=== PATIENT | female | born 1960 | race Caucasian/White ===

== ENCOUNTER 2017-01-31 10:07 | Emergency (ER) | payer OTHER | END 2017-01-31 12:05 | disposition left against medical advice (07) | LOC: UCEAST 10:07 | DX: J02.9 Acute pharyngitis, unspecified (principal); Z53.21 Procedure and treatment not carried out due to patient leaving prior to being seen by health care provider ==

== ENCOUNTER 2017-02-26 08:59 | Day surgery (SDC) | payer OTHER ==
--- NOTE | 2017-02-22 22:40 | HP ---
PREOPERATIVE HISTORY AND PHYSICAL: DATE OF SURGERY: 02/26/17 [facility] DATE OF OFFICE VISIT: 02/22/17 ATTENDING SURGEON: Dr. Roseanne Greene. (DICTATED BY JOANNA TELLO) PROCEDURE: Right shoulder arthroscopic decompression and debridement of subpectoral biceps tenodesis. CHIEF COMPLAINT: Right shoulder pain. HISTORY OF PRESENT ILLNESS: Jacquelyn is a 56-year-old female who presents to the clinic for ongoing right shoulder pain due to impingement syndrome and biceps tendinitis. She has failed conservative measures to include physical therapy, corticosteroid injections, and NSAIDs and has therefore agreed to undergo a right shoulder arthroscopic decompression and debridement and subpectoral biceps tenodesis with Dr. Greene on 02/26/17. PAST MEDICAL HISTORY: 1. Asthma. 2. Depression. 3. Common variable immune deficiency. 4. Complex regional pain syndrome. 5. GERD. 6. History of hypertension in the past, now controlled with diet and weight loss. PAST SURGICAL HISTORY: 1. Right shoulder arthroscopic surgery. 2. Laparoscopy. 3. Cholecystectomy. 4. Tonsillectomy. 5. Adenoidectomy. 6. Cataract surgery. 7. Denies prior complications with anesthesia. MEDICATIONS: 1. Topiramate 100 mg take 1 by mouth in the morning and 1 by mouth at bedtime. 2. Baldwin 5/325 one by mouth 3 times a day as needed. 3. Flexeril 5 mg 1 by mouth at night as needed. 4. Singulair 10 mg 1 by mouth daily. 5. Xyzal 5 mg 1 by mouth daily. 6. Xopenex 0.63 mg/3 mL every 4 to 6 hours as needed. 7. Xanax 0.25 mg 1 by mouth up to 3 times a day as needed for anxiety. 8. Ambien 10 mg 1 by mouth at night. 9. Bupropion HCL 150 mg 1 by mouth daily. 10. Tylenol Extra Strength 500 mg 2 by mouth as needed. 11. Lidocaine 5% topical as needed. 12. Voltaren 1% topical as needed. 13. Gammagard 10 mg/100 mL 1 time a week subcu. 14. Lexapro 10 mg 1 by mouth every day. 15. Nexium 40 mg 1 by mouth every day. 16. Flovent HFA 110 mcg/HCT 2 puffs twice daily. ALLERGIES: PENICILLIN, BACTRIM, NEURONTIN, OXCARBAZEPINE, AMITRIPTYLINE, NORTRIPTYLINE, CYMBALTA, NEURONTIN . FAMILY HISTORY: Positive for heart disease and cancer. Her sister has a history of pulmonary embolism. SOCIAL HISTORY: She lives with her spouse. She is a former smoker and quit several years ago. She reports daily alcohol consumption. She denies illegal drug use. REVIEW OF SYSTEMS: General: Negative for fevers, chills, or night sweats. No known anesthesia problems. HEENT: Negative for headache, lightheadedness, or syncopal episodes. Integumentary: Negative for abrasions, lesions, or open wounds. Cardiothoracic: Negative for chest pain, palpitations, or edema. Positive for history of hypertension in the past. Pulmonary: Negative for shortness of breath with exertion, chronic cough, or COPD. GI: Negative for nausea, vomiting, diarrhea, constipation and positive for GERD. : Negative for nocturia, urinary frequency, history of UTIs, or kidney problems. Musculoskeletal: Positive for current complaint. Neuro: Negative for numbness , tingling, history of seizure, stroke, or epilepsy. Endocrine: Negative for diabetes or thyroid disease. Heme: Negative for easy bruising, anemia, excessive bleeding. The patient denies history of DVT or PE. Infectious Disease: Negative for history of MRSA. PHYSICAL EXAMINATION GENERAL: A well-developed, well-nourished, 56-year-old female, in no acute distress. Alert and oriented x3. Appropriate mood and affect. VITAL SIGNS: Height 63.5, weight 136, blood pressure 145/84, temperature 98.1, BMI 23.7. HEENT: Normocephalic, atraumatic. PERRLA. NECK: Supple. Throat clear. PULMONARY: Lungs are clear to auscultation bilaterally. No wheezing, rhonchi, or rales. CARDIAC: Regular rate and rhythm. S1, S2. No murmurs, gallops, or rubs. No edema. ABDOMEN: Positive bowel sounds. Soft and nontender. NEURO: Alert and oriented x3. Cranial nerves grossly intact. Sensation is intact to light touch. MUSCULOSKELETAL: Right upper extremity, skin is intact. No warmth or erythema. Tenderness to palpation over the anterior joint line. Nontender over the AC joint, forward flexion to 120, abduction 80, external rotation 20, internal rotation to the posterior iliac spine, +4 to 5 strength to global rotator cuff testing. Positive Neer, Speeds, Barney Dav, and Mccone. Posterior radial and ulnar pulse. Sensation is intact to light touch distally. DIAGNOSTIC STUDIES: MRI of the right shoulder revealed a high-grade partial thickness tear of the supraspinatus tendon. No evidence of full thickness tear. There is also subscapularis tendinosis including the bicipital groove indicative of biceps tendinitis. IMPRESSION: Right shoulder impingement syndrome and biceps tendinitis. PLAN: The patient is scheduled to undergo a right shoulder arthroscopic decompression, debridement, and subpectoral biceps tenodesis with Dr. Greene on 02/26/17. Per the patient, she is being cleared by her primary care physician. She will return to office in 10 to 14 days postop for followup and suture removal. Vicodin will be used for postop pain and management because Percocet causes nausea. JOANNA TELLO [id number]/[facility] #: [id number] MTDD
[~2017-02-26 08:59] MED LIST: Buffered Lidocaine 0.9% SYRIN* 5 ML/SYR SYRINGE INTRADERM ONE; Dexamethasone TAB* 4 MG PO ONE; Famotidine IV* 10 MG/ML 2 ML (20 mg) IV ONE; HYDROcodone/ACETAMIN 5-325 MG* 1 TAB PO PRN; Morphine INJ* 2 MG/ML 1 ML SYRINGE IV PRN; PROCHLORPERAZINE INJ 5 MG/ML 2 ML VIAL IV PRN; fentaNYL* 50 MCG/ML 2 ML VIAL (100 MCG VIAL) IV PRN
[2017-02-26] MEDS ORDERED: Famotidine IV* 10 MG/ML 2 ML (20 mg) ONE (09:22)
[2017-02-26] MEDS ORDERED: Dexamethasone TAB* 4 MG ONE (09:22)
[2017-02-26] MEDS ORDERED: Clindamycin 900 MG IVPREMIX(* 900 MG/50 ML SDV IV ONE (09:23)
[2017-02-26] MEDS ORDERED: Buffered Lidocaine 0.9% SYRIN* 5 ML/SYR SYRINGE ONE (09:23)
[2017-02-26] MEDS ORDERED: KETAMINE HCL* 50 MG/ML 10 ML VIAL ONE (09:56)
[2017-02-26] MEDS ORDERED: fentaNYL* 50 MCG/ML 2 ML VIAL (100 MCG VIAL) ONE (09:56)
[2017-02-26] MEDS ORDERED: Midazolam* 1 MG/ML 5 ML VIAL (5 MG) ONE (09:56)
[2017-02-26] MEDS ORDERED: Bupivacaine 0.25% EPI 200,000* 30 ML SDV ONE (11:13)
[2017-02-26] MEDS ORDERED: Bupivacaine 0.25% SDV* 30 ML ONE (11:13)
[2017-02-26] MEDS ORDERED: Ketorolac INJ* 30 MG/ML 1 ML VIAL ONE (12:22)
[2017-02-26] MEDS ORDERED: Ondansetron INJ* 2 MG/ML VIAL ONE (12:22)
[2017-02-26] MEDS ORDERED: Propofol* 10 MG/ML 20 ML BTL IV PUSH ONE (12:22)
[2017-02-26] MEDS ORDERED: PROCHLORPERAZINE INJ 5 MG/ML 2 ML VIAL ONE (12:22)
[2017-02-26] MEDS ORDERED: Lidocaine 2% PF * 5 ML VIAL ONE (12:22)
[2017-02-26] MEDS ORDERED: Dexamethasone IV* 4 MG/ML 1 ML (4 MG) ONE (12:22)
[2017-02-26] MEDS ORDERED: methylPREDNISolone ACETATE 80* 80 MG/ML 1 ML VIAL ONE (12:33)
[2017-02-26 14:14] VITALS: BP 126/76
--- NOTE | 2017-02-27 05:10 | OP ---
DATE OF OPERATION: 02/26/2017 - [facility] DATE OF : 1960 SURGEON: Roseanne Greene MD WEB SEARCH EVALUATOR: JOANNA Zheng. An biology laboratory assistant was needed for the entirety of this case to help with positioning, retraction, and was utilized throughout all portions of the case. ANESTHESIOLOGIST: Dr. Figueroa. ANESTHESIA: General with interscalene block. PRE-OP DIAGNOSES: Right shoulder impingement with bicipital tendinitis, partial tear of the rotator cuff. POST-OP DIAGNOSES: Right shoulder impingement with bicipital tendinitis, partial tear of the rotator cuff. OPERATIVE PROCEDURES: 1. Right shoulder arthroscopy with glenohumeral debridement. 2. Subacromial decompression with acromioplasty. 3. Subpectoral biceps tenodesis. 4. Subacromial injection of 80 mg of depomedrol COMPLICATIONS: None. ESTIMATED BLOOD LOSS: Minimal. IMPLANTS: One 2.8 mm Q-FIX [place]. INDICATIONS: Jacquelyn Tapia is a 56-year-old female who presents with persistent right shoulder pain. She had an injection, which helped her previously. She did physical therapy. The pain continued to persist and she had an MRI that confirmed a partial-thickness rotator cuff tear with bicipital tendinitis, but no full- thickness tears. Risks and benefits of surgical versus nonoperative treatment were discussed at length and she elected to proceed with surgery. DESCRIPTION OF PROCEDURE: The patient was greeted in the preoperative area by the attending surgeon. Correct extremity was marked and consent was confirmed. The patient then underwent interscalene nerve block by the anesthesiologist, after which the patient was then brought back to the operating suite, where she was placed in a left lateral decubitus position with an axillary roll. She underwent general anesthesia with LMA intubation, after which she was secured by the pegboard. The right arm was draped unsterilely with 10 pounds of traction. All bony prominences were padded. The right shoulder was then prepped and draped in the usual sterile fashion beginning with chlorhexidine soap, scrub, and alcohol wipe, and a final prep with ChloraPrep. After appropriate surgical pause indicating side, site, procedure, and administration of antibiotics, a standard postero-lateral portal was made sharply with an 11 blade. The scope was introduced through the joint. The joint was examined. There was abundant hyperemic tissue, especially anteriorly and along the interval. The superior, inferior, and posterior labrum had unstable fraying. The inferior recess was intact. The glenoid had grade 0 to 1 changes. The humeral head had grade 0 changes. The biceps was subluxed anteriorly. The anterior portal was made in an outside-in fashion and the biceps was then tenotomized for later tenodesis. The soft tissues were carefully dissected to expose the under-surface of the subscapularis, which was intact. The undersurface of the supraspinatus tendon had mild partial- thickness tearing. This was then marked and probed with an 18- gauge needle and a PDS suture to then probe on the superior portion to make sure there was no evidence of tearing. All fluid and debris were removed from the joint and attention was directed to the subacromial space. The scope was placed in the subacromial space. The lateral portal was made in an outside-in fashion. The shaver was used to remove the abundant bursa that was present. The undersurface of the acromion was identified and then skeletonized using the electrocautery device. The CA ligament was peeled back. A small acromioplasty was done using a 4.0 oval moe. All loose debris and tissue were removed. Once the debridement was complete, an 18-gauge needle was placed under arthroscopic visualization for later subacromial space injection of 80 mg of Depo- Medrol. Attention was directed to the biceps tendon. The bed was airplaned slightly to the right side. The anterior aspect of the shoulder was prepped again with ChloraPrep. A 15 blade was used to make an incision in line with the biceps tendon incorporating the inferior two-thirds of the pec tendon. The soft tissues were carefully dissected using the Metzenbaum scissors. The pec fascia was identified and then all the remaining dissection was done bluntly. The pec was then retracted proximally. Bicipital groove was palpated and the biceps was identified. This was then brought through the wound and found to have abundant synovitis. The groove was then prepared in the usual fashion with electrocautery device with the round ball rasp and osteotome to allow for a bony bleeding bed. The Q-FIX drill guide was then brought to the field and drilled unicortically. The Q-FIX was deployed with excellent purchase. The sutures were passed through the tendon approximately 1 cm proximal to the musculotendinous junction in a Jose G-Ray type configuration. Excess stump was directly excised and the sutures were shelved back into the wound. This was then tied down and secured. The wounds were then copiously irrigated with sterile saline. The portals were closed with 3-0 nylon, the anterior wound was closed in layers with 2-0 Vicryl and 3-0 Monocryl. The subacromial space was injected with 80 mg of Depo and 5 mL of Marcaine. The anterior wound was injected with 20 mL of 0.25% Marcaine. Sterile dressings were applied, a Cryo/ Cuff as well as an UltraSling. She was then awoken from anesthesia and transferred to PACU in stable condition. POSTOPERATIVE PLAN: She will be nonweightbearing. She will be in the sling for approximately 4 weeks. She will be discharged on pain medication and antibiotics. She will be allowed elbow, hand, and wrist range of motion as well as gentle pendulum. A DVT prophylaxis was considered, but deferred due to no previous personal or family history. I will see the patient back in 10 to 14 days. [id number]/[facility] #: [id number] JONES
== END 2017-02-26 14:24 | disposition home or self-care (01) ==
LOC: OREAST 08:59
PROVIDERS: ATTEND Orthopaedic Surgery
PROC: 0LS14ZZ Reposition Right Shoulder Tendon, Percutaneous Endoscopic Approach (ICD-10-PCS; 2017-02-26)
PROC: 0RBJ4ZZ Excision of Right Shoulder Joint, Percutaneous Endoscopic Approach (ICD-10-PCS; principal; 2017-02-26 10:15)
DX: M25.811 Other specified joint disorders, right shoulder (principal); M75.21 Bicipital tendinitis, right shoulder; K21.9 Gastro-esophageal reflux disease without esophagitis; D83.9 Common variable immunodeficiency, unspecified; J45.909 Unspecified asthma, uncomplicated; Z79.899 Other long term (current) drug therapy; M25.511 Pain in right shoulder
CPT/HCPCS: A9270-GY; C1776; J0780; J1040; J1100; J1885; J2250; J2405; J2704; J3010

== ENCOUNTER 2019-01-29 09:41 | Emergency (ER) | payer OTHER ==
[2019-01-29] MEDS ORDERED: NS 0.9% 1000 ML** 1,000 ML IV SCH ×2 (10:45→12:30)
[2019-01-29] MEDS ORDERED: Ondansetron INJ* 2 MG/ML VIAL IV ONE (10:45)
--- NOTE | 2019-01-29 10:57 | UC ---
Nausea/Vomiting/Diarrhea HPI - HPI Summary HPI Summary: SUDDEN ONSET LAST NIGHT OF ABDOMINAL PAIN/CRAMPING WITH NAUSEA, VOMITING AND WATERY DIARRHEA. DENIES ANY NEW FOODS OR RECENT EXOTIC TRAVEL. HAD MULTIPLE EPISODES OF DIARRHEA AND VOMITING LAST NIGHT BUT OVERNIGHT AND TODAY HAS NOT HAD ANY. NAUSEA PERSISTS. SHE HAS NOT HAD ANYTHING TO EAT AND ONLY A FEW SIPS OF JEANNE IRWIN. SHE FEELS WEAK, DIZZY AND DEHYDRATED. NO FEVER. NO RESPIRATORY SYMPTOMS. HAS A HISTORY OF AN IMMUNE DEFICIENCY. - History of Current Complaint Chief Complaint: UCGeneralIllness Stated Complaint: STOMACH ACHE Time Seen by Provider: 01/29/19 10:26 Hx Obtained From: Patient Onset/Duration: Sudden Onset, Lasting Hours, Still Present - BUT IMPROVED Timing: Constant Severity Initially: Moderate Severity Currently: Moderate Pain Intensity: 5 Pain Scale Used: 0-10 Numeric Location: Diffuse Character: Sharp Aggravating Factor(s): Nothing Alleviating Factor(s): Spontaneous Resolution Nausea/Vomiting Presence: Nauseated, Vomiting Diarrhea Presence: Yes Diarrhea Characteristics: Watery - Allergies/Home Medications Allergies/Adverse Reactions: Allergies Allergy/AdvReac Type Severity Reaction Status Date / Time MS Amitriptyline Allergy Severe HEART Verified 02/13/18 15:05 [Amitriptyline] PALPITATIONS MS CI Pigment Blue 63 Allergy Severe ENORMOUS Verified 02/13/18 15:05 [From Cymbalta] MOOD SWINGS MS Duloxetine [From Cymbalta] Allergy Severe ENORMOUS Verified 02/13/18 15:05 MOOD SWINGS MS Nortriptyline Allergy Severe HEART Verified 02/13/18 15:05 [Nortriptyline] PALPITATIONS MS Sulfamethoxazole Allergy Severe Rash Verified 02/13/18 15:05 w/Trimethoprim [From Bactrim] MS Gabapentin Allergy Intermediate FLU-LIKE Verified 02/13/18 15:05 [From Neurontin] SYMPTOMS MS Oxcarbazepine Allergy Intermediate PURPLE Verified 02/13/18 15:05 [Oxcarbazepine] RASH ON FEET MS Oxycodone [Oxycodone] AdvReac Severe violent Verified 02/13/18 15:05 emesis MS Penicillins [Penicillins] AdvReac Intermediate Insomnia Verified 02/13/18 15: 05 Home Medications: Home Medications Esomeprazole Magnesium [Nexium] 20 mg PO DAILY 01/29/19 [History Confirmed 01/29] Montelukast Sodium TAB* [Singulair 10 MG TAB*] 1 tab PO QPM 01/29/19 [History Confirmed 01/29/19] Polyethylene Glycol 3350 [Miralax] 17 gm PO DAILY 01/29/19 [History Confirmed ] PMH/Surg Hx/FS Hx/Imm Hx - Additional Past Medical History Additional PMH: COMBINED VARIABLE IMMUNE DEFICIENCY, COMPLEX REGIONAL PAIN SYNDROME Respiratory History: Asthma GI/ History: Gastroesophageal Reflux Neurological History: Migraine Psychological History: Anxiety, Depression - Surgical History Surgical History: Yes Surgery Procedure, Year, and Place: SYMPATHETIC NERVE BLOCKS EVERY 7 WEEKS, [facility] , LAST ONE 02/09/17. 1965 TONSILLECTOMY,. 1991 RIGHT SHOULDER ARTHROSCOPY, [facility] [place] - 2Xs. 1994 ABDOMINAL LAPAROSCOPY, [facility] [place]. 2001 LAPAROSCOPIC CHOLECYSTECOMY, [facility]. catarct surgery. dorsal route ganglion stimulator - Family History Known Family History: Positive: None - Social History Alcohol Use: Daily Alcohol Amount: wiinw Substance Use Type: None Smoking Status (MU): Former Smoker Type: Cigarettes Amount Used/How Often: off and on 10 years , 1ppd Have You Smoked in the Last Year: No When Did the Patient Quit Smoking/Using Tobacco: 29 years Review of Systems All Other Systems Reviewed And Are Negative: Yes Constitutional: Positive: Fatigue Respiratory: Positive: Negative Cardiovascular: Positive: Negative Gastrointestinal: Positive: Abdominal Pain, Vomiting, Diarrhea, Nausea Genitourinary: Positive: Negative Physical Exam Triage Information Reviewed: Yes Appearance: No Pain Distress, Well-Nourished, Ill-Appearing - SEEMS TIRED BUT NOT TOXIC Vital Signs: Initial Vital Signs Temp 99.4 F 01/29/19 09:47 Pulse 61 01/29/19 09:47 Resp 18 01/29/19 09:47 BP 134/65 01/29/19 09:47 Pulse Ox 99 01/29/19 09:47 Vital Signs Reviewed: Yes Eyes: Positive: Conjunctiva Clear ENT: Positive: Hearing grossly normal Neck: Positive: Supple Respiratory: Positive: No respiratory distress, No accessory muscle use Cardiovascular Exam: Normal Abdomen Description: Positive: Soft, Other: - MILD DIFFUSE TENDERNESS. Negative : Distended, Guarding Bowel Sounds: Positive: Present Musculoskeletal: Positive: No Edema Neurological: Positive: Alert Psychological: Positive: Normal Response To Family, Age Appropriate Behavior Skin: Negative: Rashes Re-Evaluation - Re-Evaluation First Eval Re-Evaluation Time: 12:20 - FEELS A LITTLE BETTER AFTER 1L NS AND 4MG ZOFRAN. STILL DIZZY. REQUESTING A 2ND LITER Change: Improved Second Eval Re-Evaluation Time: 14:35 - FEELS EVEN BETTER AFTER 2ND LITER. READY FOR D/C Change: Improved Naus/Vom/Diarrhea Course/Dx - Course Course Of Treatment: PATIENT FELT MUCH IMPROVED AFTER 2 L OF NORMAL SALINE AND 4 MG OF ZOFRAN. WAS ABLE TO STAND UP, WALK AROUND AND URINATED. ADVISED TO PUSH FLUIDS AND FOLLOW BLAND, EASY DIET. GO TO THE ER WITHOUT FAIL IF SHE DEVELOPS ANY WORSENING SYMPTOMS. CBC DRAWN. - Differential Dx/Diagnosis Provider Diagnosis: Acute gastroenteritis, Dehydration Condition At Discharge: Stable Discharge - Sign-Out/Discharge Documenting (check all that apply): Patient Departure All imaging exams completed and their final reports reviewed: No Studies - Discharge Plan Condition: Stable Disposition: HOME Prescriptions: Ondansetron ODT TAB* [Zofran Odt TAB*] 4 mg PO Q6H PRN #20 tab.odt PRN Reason: Nausea/Vomiting Patient Education Materials: Dehydration (ED), Gastroenteritis (ED) Referrals: Karen Feliz MD [Primary Care Provider] - If Needed Additional Instructions: YOU FELT BETTER AFTER 2 L OF NORMAL SALINE AND 4 MG OF ZOFRAN. MORE ZOFRAN SENT TO YOUR PHARMACY FOR YOU TO USE NEEDED FOR NAUSEA. CONTINUE TO PUSH FLUIDS. GASTROENTERITIS: You have gastroenteritis ("intestinal flu"). This disease is usually caused by a virus. There is no specific treatment. The disease will end by itself. For now, the main danger is dehydration. Give clear liquids. Examples include Pedialyte, Gatorade, clear broth, juices, flat sodas, and jello water. Medications may be prescribed by the physician for special cases. Once tolerated, the clear liquid diet may be supplemented with rice, cereal, toast, applesauce, or bananas. GO TO THE [facility] [place] ER WITHOUT FAIL if vomiting increases or blood appears in the bowel movement or vomitus; if you fail to improve, or if signs of dehydration occur (tongue and mouth become dry, lethargy). ENSURE ADEQUATE HYDRATION. CLEAR LIQUIDS, BLAND DIET. AVOID CAFFEINE, DAIRY, GREASY, SPICY FOODS. ONCE YOU ARE TOLERATING CLEAR LIQUIDS YOU CAN ADVANCE TO SIMPLE, BLAND FOODS. - Billing Disposition and Condition Condition: STABLE Disposition: Home
[2019-01-29 13:25] LABS: ABS Basophils 0.1 10^3/ul (0-0.2); ABS Eosinophils 0.3 10^3/ul (0-0.6); ABS Lymphocytes 1.3 10^3/ul (1.0-4.8); ABS Monocytes 0.5 10^3/ul (0-0.8); ABS Neutrophils 2.9 10^3/ul (1.5-7.7); Eosinophil % 6.5 %; Hematocrit 40 % (35-47); Hemoglobin 13.9 g/dL (12.0-16.0); Lymphocyte % 25.4 %; Mean Corpuscular HGB Conc 34 g/dL (31-36); Mean Corpuscular Hemoglobin 33 pg (27-31); Mean Corpuscular Volume 97 fL (80-97); Mean Platelet Volume 8.1 fL (7.4-10.4); Nucleated Red Blood Cells % 0.1; Platelet Count 341 10^3/uL (150-450); Red Blood Count 4.17 10^6 /uL (3.70-4.87); Red Cell Distribution Width 14 % (10.5-15); White Blood Count 5.1 10^3/uL (3.5-10.8)
[2019-01-29 14:56] VITALS: BP 160/78
== END 2019-01-29 14:55 | disposition home or self-care (01) ==
LOC: UCEAST 09:41
DX: K52.9 Noninfective gastroenteritis and colitis, unspecified (principal); E86.0 Dehydration; D83.9 Common variable immunodeficiency, unspecified; G90.50 Complex regional pain syndrome I, unspecified; K21.9 Gastro-esophageal reflux disease without esophagitis; Z88.5 Allergy status to narcotic agent; Z88.0 Allergy status to penicillin; Z88.2 Allergy status to sulfonamides; Z88.8 Allergy status to other drugs, medicaments and biological substances; Z87.891 Personal history of nicotine dependence
CPT/HCPCS: 36415; 85025; 96360; 96361; 96374; 99212; G0463; J2405